=== PATIENT | male | born 1995 | race Caucasian/White ===

== ENCOUNTER 2023-05-04 00:10 | Emergency (ER) | payer SELFPAY ==
[~2023-05-04] VITALS: Ht 172.7 cm; Wt 66.7 kg
[2023-05-04 01:01] VITALS: BP 139/83; PULSE 92; RESP 18; TEMP 97.9; O2SAT 99
--- NOTE | 2023-05-04 01:10 | NUR ---
PT TRIAGED AND AMBULATED TO WR.
--- NOTE | 2023-05-04 02:03 | NUR ---
PT TO BED 9
--- NOTE | 2023-05-04 02:03 | NUR ---
called pt no answer
[2023-05-04] MEDS ORDERED: HYDROcodone/APAP 5/325 MG 1 TAB TAB PO ONE (02:30)
[2023-05-04] MEDS ORDERED: LIDOCAINE 2% 1000 MG/50 ML VIAL INJ ONE (03:00)
[2023-05-04] MEDS ORDERED: AMPICILLIN/SULBACTAM 3 GM VIAL IM ONE (03:00)
--- NOTE | 2023-05-04 03:36 | NUR ---
ERMD at bedside at this time
[2023-05-04] MEDS ORDERED: NAPR-54 PO (03:45)
[2023-05-04] MEDS ORDERED: SULF-59 PO (03:45)
[2023-05-04] MEDS ORDERED: CEPH-588 PO (03:45)
[2023-05-04 04:27] VITALS: BP 139/83; PULSE 92; RESP 18; TEMP 97.9; O2SAT 99
--- NOTE | 2023-05-04 04:27 | NUR ---
Patient discharged with v/s stable. Written and verbal after care instructions given and explained. New rx keflex, naproxen, and bactrim DS Patient verbalized understanding. Ambulatory with steady gait. All questions addressed prior to discharge. Advised to follow up with PMD.
== END 2023-05-04 04:27 | disposition home or self-care (01) ==
LOC: MED 00:10
DX: L03.011 Cellulitis of right finger (principal); F15.10 Other stimulant abuse, uncomplicated; Z79.899 Other long term (current) drug therapy
CPT/HCPCS: 26011; 73130; 90471; 90715; 96372; 99284; J0295; J2001

== ENCOUNTER 2024-04-25 00:05 | Emergency (ER) | payer SELFPAY ==
[~2024-04-25] VITALS: Ht 172.7 cm; Wt 59.0 kg
[~2024-04-25 00:05] MED LIST: CEPH-588 PO; NAPR-337 PO; SULF-59 PO
[2024-04-25 00:31] VITALS: BP 121/77; PULSE 72; RESP 18; TEMP 98.2; O2SAT 100
[2024-04-25] MEDS ORDERED: HYDR-5071 PO (03:20)
[2024-04-25] MEDS ORDERED: IBUP-2218 PO (03:20)
[2024-04-25] MEDS ORDERED: KETOROLAC 30 MG/ML VIAL ONE (03:24)
[2024-04-25] MEDS ORDERED: CEPH-588 PO (03:26)
[2024-04-25] MEDS: KETOROLAC 30 MG/ML VIAL IM ONE (03:31)
== END 2024-04-25 03:33 | disposition home or self-care (01) ==
LOC: MED 00:05
DX: L03.116 Cellulitis of left lower limb (principal); L03.031 Cellulitis of right toe; Z79.899 Other long term (current) drug therapy
CPT/HCPCS: 73660; 96372; 99283; J1885